=== PATIENT | female | born 1995 | race Caucasian/White ===

== ENCOUNTER → 2024-02-24 09:35 | Outpatient (REF) | payer OTHER, SELFPAY | LOC: HWRAD 09:35 | PROVIDERS: ATTENDING PHYSICIAN Nurse Practitioner Adult Health | DX: R10.33 Periumbilical pain (principal); R10.2 Pelvic and perineal pain; N92.6 Irregular menstruation, unspecified | CPT/HCPCS: 74178; Q9967 ==

== ENCOUNTER → 2024-09-08 07:52 | Outpatient (REF) | payer OTHER, SELFPAY | LOC: HWRAD 07:52 | PROVIDERS: ATTENDING PHYSICIAN Obstetrics & Gynecology; FAMILY PHYSICIAN Nurse Practitioner Adult Health | DX: N94.10 Unspecified dyspareunia (principal) | CPT/HCPCS: 76830; 76856 ==